=== PATIENT | female | born 1950 | race Caucasian/White ===

== ENCOUNTER 2020-12-20 05:57 | Observation (INO) ==
[~2020-12-20 05:57] MED LIST: ACETAMINOPHEN 500 MG TABLET PO ONE; DIAZEPAM 5 MG TABLET PO ONE; FAMOTIDINE 20 MG TABLET PO ONE; GABAPENTIN 400 MG CAPSULE PO ONE
[2020-12-20] MEDS ORDERED: VANCOMYCIN INJ 1,000 MG in SODIUM CHLORIDE 0.9% 250 ML IV ONE (06:00)
[2020-12-20] MEDS ORDERED: MIDAZOLAM 2 MG/2 ML VIAL ONE (06:48)
[2020-12-20] MEDS ORDERED: SEVOFLURANE 1 UNIT/15 MINUTE INH ONE ×10 (06:48→09:58)
[2020-12-20] MEDS ORDERED: LIDOCAINE 2% 5 ML VIAL ONE (06:48)
[2020-12-20] MEDS ORDERED: ROCURONIUM 50 MG/5 ML VIAL IV ONE (06:48)
[2020-12-20] MEDS ORDERED: propofoL 200 MG/20 ML VIAL IV ONE (06:48)
[2020-12-20] MEDS ORDERED: fentaNYL 100 MCG/2 ML VIAL ONE (06:48)
[2020-12-20] MEDS ORDERED: DEXAMETHASONE 4 MG/1 ML VIAL ONE ×2 (06:55→09:28)
[2020-12-20] MEDS ORDERED: EPINEPHrine 1 MG/ML VIAL ONE (06:56)
[2020-12-20] MEDS ORDERED: ROPIVACAINE 0.5% 30 ML VIAL ONE (06:56)
[2020-12-20] MEDS ORDERED: LIDOCAINE 1% 5 ML VIAL ONE (06:56)
[2020-12-20] MEDS ORDERED: METHYLENE BLUE 10 ML VIAL IV ONE (06:59)
[2020-12-20] MEDS ORDERED: TISSUE ADHESIVE 1 EACH APPLICATOR TOP ONE (06:59)
[2020-12-20] MEDS ORDERED: LIDOCAINE 1%/EPI INJ 20 ML VIAL ONE (07:00)
[2020-12-20] MEDS ORDERED: LACTATED RINGERS 1,000 ML IV SCH (07:00)
[2020-12-20] MEDS ORDERED: ONDANSETRON 4 MG/2 ML VIAL IV PRN ×2 (09:15→10:28)
[2020-12-20] MEDS ORDERED: DEXTROSE 50% 25 GM/50 ML VIAL IV PRN (09:19)
[2020-12-20] MEDS ORDERED: GLYCOPYRROLATE 0.4 MG/2 ML VIAL ONE ×2 (09:19→09:42)
[2020-12-20] MEDS ORDERED: ePHEDrine 50 MG/ML VIAL ONE ×2 (09:19→09:22)
[2020-12-20] MEDS ORDERED: PHENYLEPHRINE 1 MG/10 ML SYRINGE IV ONE (09:19)
[2020-12-20] MEDS ORDERED: GLUCAGON 1 MG VIAL IM PRN (09:19)
[2020-12-20] MEDS ORDERED: KETOROLAC 30 MG/1 ML VIAL ONE (09:28)
[2020-12-20] MEDS ORDERED: POTASSIUM CHLORIDE 20 MEQ TABLET PO SCH (09:30)
[2020-12-20] MEDS ORDERED: PHENYLEPHRINE 10 MG/1 ML VIAL IV ONE (09:42)
[2020-12-20] MEDS ORDERED: LACTATED RINGERS 1,000 ML IV ONE (09:44)
[2020-12-20] MEDS ORDERED: MORPHINE 10 MG/1 ML VIAL IV PRN (10:28)
[2020-12-20] MEDS: MORPHINE 2 MG/1 ML SYRINGE IV PRN ×2 (12:06→20:53)
[2020-12-20] MEDS: INSULIN REGULAR 100 UNIT/ML SUBCUT SCH ×3 (12:19→23:54)
[2020-12-20] MEDS: amLODIPine 5 MG TABLET PO SCH (15:56)
[2020-12-20] MEDS ORDERED: VANCOMYCIN INJ 1,250 MG in SODIUM CHLORIDE 0.9% 250 ML IV ONE (17:15)
[2020-12-20] MEDS: ROSUVASTATIN 20 MG TABLET PO SCH (20:48)
[2020-12-20] MEDS: ASPIRIN CHEW 81 MG TABLET PO SCH (20:48)
[2020-12-20] MEDS: diphenhydrAMINE CAP 25 MG CAPSULE PO SCH (20:48)
[2020-12-20] MEDS: AZELASTINE NASAL 137 MCG/SPRAY 30 ML BOTTLE BOTH NARES SCH (20:49)
[2020-12-21 02:01] LABS: Hematocrit 29.9 VOL% (35.7-47.0); Hemoglobin 9.4 GM/DL (12.0-16.0)
[2020-12-21] MEDS: MORPHINE 2 MG/1 ML SYRINGE IV PRN (03:35)
[2020-12-21] MEDS: LEVOTHYROXINE 75 MCG TABLET PO SCH (05:55)
[2020-12-21] MEDS: INSULIN REGULAR 100 UNIT/ML SUBCUT SCH ×3 (05:55→18:42)
[2020-12-21] MEDS ORDERED: SODIUM CHLORIDE 0.9% 500 ML IV ONE ×4 (07:00→07:31)
[2020-12-21] MEDS ORDERED: CALCIUM CARBONATE CHEW 500 MG TABLET PO PRN (08:05)
[2020-12-21] MEDS: DEXTROSE 5% LACTATED RINGERS 1,000 ML IV SCH ×2 (08:26→21:09)
[2020-12-21] MEDS: OLMESARTAN 20 MG TABLET PO SCH (08:27)
[2020-12-21] MEDS: hydroCHLOROthiazide 25 MG TABLET PO SCH (08:27)
[2020-12-21] MEDS ORDERED: VANCOMYCIN INJ 1,250 MG in SODIUM CHLORIDE 0.9% 250 ML IV ONE (08:30)
[2020-12-21 08:37] LABS: Basophils % 0.1 % (0.0-0.8); Hematocrit 26.9 VOL% (35.7-47.0); Hemoglobin 8.7 GM/DL (12.0-16.0); Immature Granulocytes % 0.4 %; Immature Granulocytes Absolute 0.03 #; Lymphocytes # 1.5 10*3/uL (1.4-4.0); Lymphocytes % 19.1 % (21.3-54.2); Mean Corpuscular HGB Conc 32.3 GM/DL (32-36); Mean Corpuscular Volume 90.6 FL (87-102); Mean Platelet Volume 9.4 FL (9.6-12.0); Monocytes % 9.5 % (1.7-12.7); Neutrophils % 70.9 % (38.7-73.9); Platelet Count 243 T/CUMM (130-400); Red Blood Count 2.97 MC/CUMM (3.8-5.5); Red Cell Distribution Width 14.4 % (9.3-17.3); White Blood Count 7.8 T/CUMM (4-12)
[2020-12-21 08:50] LABS: Albumin 2.8 G/DL (3.4-5.0); Bilirubin,Total 0.9 MG/DL (0.20-1.00); Calcium 7.8 MG/DL (8.5-10.1); Osmolality,Calculated 262.9 MOS/KG (273-304); Potassium 4.4 MMOL/L (3.5-5.1); Total Protein 5.4 G/DL (6.4-8.2)
[2020-12-21] MEDS: AZELASTINE NASAL 137 MCG/SPRAY 30 ML BOTTLE BOTH NARES SCH ×2 (09:00→21:07)
[2020-12-21] MEDS ORDERED: ONDANSETRON 4 MG/2 ML VIAL ONE (09:02)
[2020-12-21] MEDS ORDERED: LIDOCAINE 2% 5 ML VIAL ONE (09:02)
[2020-12-21] MEDS ORDERED: propofoL 200 MG/20 ML VIAL IV ONE (09:02)
[2020-12-21] MEDS ORDERED: DEXAMETHASONE 4 MG/1 ML VIAL ONE (09:02)
[2020-12-21] MEDS ORDERED: MIDAZOLAM 2 MG/2 ML VIAL ONE (09:03)
[2020-12-21] MEDS ORDERED: fentaNYL 100 MCG/2 ML VIAL ONE (09:03)
[2020-12-21] MEDS ORDERED: SEVOFLURANE 1 UNIT/15 MINUTE INH ONE (09:05)
[2020-12-21] MEDS ORDERED: FAMOTIDINE 20 MG/2 ML VIAL IV ONE (09:37)
[2020-12-21] MEDS ORDERED: PHENYLEPHRINE 1 MG/10 ML SYRINGE IV ONE (09:44)
[2020-12-21] MEDS ORDERED: GLYCOPYRROLATE 0.4 MG/2 ML VIAL ONE (09:44)
[2020-12-21] MEDS ORDERED: GLUCAGON 1 MG VIAL IM PRN (10:17)
[2020-12-21] MEDS ORDERED: DEXTROSE 50% 25 GM/50 ML VIAL IV PRN (10:17)
[2020-12-21 11:11] LABS: Bacteria,Urine Occasional /HPF (Few); Bilirubin,Urine Negative (Negative); Blood, Urine Negative (Negative); Glucose,Urine (UA) Negative (Negative); Hyaline Casts,Urine 1 /LPF (0-3); Ketones,Urine Negative (Negative); Mucus,Urine Occasional /LPF (Occasional); Nitrite,Urine Negative (Negative); Protein,Urine Negative; RBC,Urine <1 /HPF (0-4); Squamous Epithelial Cell,Urine Occasional /HPF (0-10); Urine Appearance CLEAR (Clear); Urine Specific Gravity 1.013 (1.001-1.035); Urine Urobilinogen < 2.0 EU/DL (0.2-1.0)
[2020-12-21 11:12] LABS: Urine Color Light Green (Yellow)
[2020-12-21] MEDS: PANTOPRAZOLE 40 MG TABLET PO SCH (12:44)
[2020-12-21] MEDS: amLODIPine 5 MG TABLET PO SCH (17:11)
[2020-12-21] MEDS: diphenhydrAMINE CAP 25 MG CAPSULE PO SCH (21:07)
[2020-12-21] MEDS: ASPIRIN CHEW 81 MG TABLET PO SCH (21:08)
[2020-12-21] MEDS: ROSUVASTATIN 20 MG TABLET PO SCH (21:08)
[2020-12-22] MEDS: INSULIN REGULAR 100 UNIT/ML SUBCUT SCH ×3 (01:29→11:50)
[2020-12-22] MEDS: LEVOTHYROXINE 75 MCG TABLET PO SCH (06:27)
[2020-12-22 08:10] LABS: Basophils % 0.1 % (0.0-0.8); Eosinophils # 0.1 10*3/uL (0.0-0.87); Eosinophils % 0.8 % (0.00-10.9); Hematocrit 27.2 VOL% (35.7-47.0); Hemoglobin 8.4 GM/DL (12.0-16.0); Immature Granulocytes % 0.3 %; Immature Granulocytes Absolute 0.02 #; Lymphocytes # 2.1 10*3/uL (1.4-4.0); Lymphocytes % 27.7 % (21.3-54.2); Mean Corpuscular HGB Conc 30.9 GM/DL (32-36); Mean Corpuscular Volume 93.8 FL (87-102); Mean Platelet Volume 10.2 FL (9.6-12.0); Monocytes % 9.3 % (1.7-12.7); Neutrophils % 61.8 % (38.7-73.9); Red Cell Distribution Width 14.7 % (9.3-17.3); White Blood Count 7.5 T/CUMM (4-12)
[2020-12-22 08:17] LABS: Platelet Count 190 T/CUMM (130-400)
[2020-12-22] MEDS: PANTOPRAZOLE 40 MG TABLET PO SCH (09:15)
[2020-12-22] MEDS: AZELASTINE NASAL 137 MCG/SPRAY 30 ML BOTTLE BOTH NARES SCH (09:15)
[2020-12-22] MEDS: OLMESARTAN 20 MG TABLET PO SCH (09:15)
[2020-12-22] MEDS: hydroCHLOROthiazide 25 MG TABLET PO SCH (09:16)
[2020-12-22 09:27] LABS: Osmolality,Calculated 280.4 MOS/KG (273-304); Potassium 3.9 MMOL/L (3.5-5.1)
[2020-12-22] MEDS: DEXTROSE 5% LACTATED RINGERS 1,000 ML IV SCH (11:49)
[2020-12-22 11:57] VITALS: BP 114/54
== END 2020-12-22 14:45 | disposition home or self-care (01) ==
LOC: N.OR 05:57 → N.4E 05:57 → N.SDSINP 05:57 → N.4E 11:12
PROVIDERS: ADMIT Surgery; ATTEND Surgery